=== PATIENT | male | born 1930 | race African-American/Black ===

== ENCOUNTER 2019-11-12 08:56 | Inpatient (IN) ==
[2019-11-12 11:36] LABS: Basophils % 0.2 % (0.0-0.8); Hematocrit 29.7 VOL% (42.0-52.0); Hemoglobin 9.6 GM/DL (14.0-18.0); Immature Granulocytes % 0.6 %; Immature Granulocytes Absolute 0.03 #; Lymphocytes # 0.6 10*3/uL (1.4-4.0); Lymphocytes % 11.3 % (21.2-54.2); Mean Corpuscular HGB Conc 32.3 GM/DL (32-36); Mean Corpuscular Volume 84.6 FL (87-102); Mean Platelet Volume 12.8 FL (9.6-12.0); Monocytes % 6.7 % (1.7-12.7); Neutrophils % 81.2 % (38.7-73.9); Platelet Count 120 T/CUMM (130-400); Red Blood Count 3.51 MC/CUMM (3.8-5.5); Red Cell Distribution Width 15.3 % (9.3-17.3); White Blood Count 4.9 T/CUMM (4-12)
[2019-11-12] MEDS ORDERED: ONDANSETRON 4 MG/2 ML VIAL IV PRN (11:39)
[2019-11-12 12:01] LABS: INR 1.1; PT Patient Result 11.8 SECS (9.8-11.9); Partial Thromboplastin Time 37.9 SECS (23.9-33.8)
[2019-11-12] MEDS ORDERED: ASPIRIN CHEW 81 MG TABLET PO ONE (12:02)
[2019-11-12 12:22] LABS: CKMB % 1.7 %
[2019-11-12 12:24] LABS: Troponin I 8.29 NG/ML (0.00-0.045)
[2019-11-12] MEDS ORDERED: SODIUM CHLORIDE 0.9% 1,000 ML IV SCH (12:30)
[2019-11-12 12:44] LABS: Albumin 3.2 G/DL (3.4-5.0); Bilirubin,Total 0.8 MG/DL (0.2-1.0); Calcium 8.4 MG/DL (8.5-10.1); Osmolality,Calculated 298.5 MOS/KG (273-304); Total Protein 7.8 G/DL (6.4-8.3)
[2019-11-12] MEDS ORDERED: ENOXAPARIN 80 MG/0.8 ML SYRINGE SUBCUT ONE (13:00)
[2019-11-12] MEDS ORDERED: ENOXAPARIN 80 MG/0.8 ML SYRINGE SUBCUT SCH (13:00)
[2019-11-12] MEDS: DEXAMETHASONE 4 MG/1 ML VIAL IV SCH (13:16)
[2019-11-12] MEDS: ZINC GLUCONATE 50 MG TABLET PO SCH (13:17)
[2019-11-12 13:37] LABS: Burr Cells Few; Hypochromasia 3+; Microcytosis 1+; Platelet Estimate Adequate; Polychromasia Slight; Schistocytes Few
[2019-11-12 13:38] LABS: Ovalocytes Few
[2019-11-12 13:50] LABS: Ferritin 3960.6 ng/ml (26-388)
[2019-11-12] MEDS: LACTULOSE 20 GM/30 ML UDCUP PO SCH (15:29)
[2019-11-12] MEDS ORDERED: SODIUM CHLORIDE 0.9% 1,000 ML IV PRN (15:30)
[2019-11-12] MEDS: SODIUM BICARB INJ 100 MEQ in DEXTROSE 5% NACL 0.22% 1,000 ML IV SCH (17:24)
[2019-11-12] MEDS ORDERED: PHENYLEPHRINE DRIP 40 MG/250 ML PREMIX IV PRN (17:30)
[2019-11-12] MEDS: ROSUVASTATIN 20 MG TABLET PO SCH (20:05)
[2019-11-12] MEDS ORDERED: ROSUVASTATIN 10 MG TABLET PO SCH (21:00)
[2019-11-12] MEDS ORDERED: METOPROLOL TARTRATE 25 MG TABLET PO SCH (21:00)
[2019-11-13 03:37] LABS: Hematocrit 33.2 VOL% (42.0-52.0); Hemoglobin 10.3 GM/DL (14.0-18.0); Immature Granulocytes Absolute 0.04 #; Lymphocytes # 0.3 10*3/uL (1.4-4.0); Lymphocytes % 8.1 % (21.2-54.2); Mean Corpuscular Volume 86.5 FL (87-102); Mean Platelet Volume 12.6 FL (9.6-12.0); Monocytes % 4.4 % (1.7-12.7); Neutrophils % 86.5 % (38.7-73.9); Platelet Count 164 T/CUMM (130-400); Red Blood Count 3.84 MC/CUMM (3.8-5.5); Red Cell Distribution Width 15.3 % (9.3-17.3); White Blood Count 4.1 T/CUMM (4-12)
[2019-11-13 03:59] LABS: Calcium 8.4 MG/DL (8.5-10.1); Osmolality,Calculated 308.1 MOS/KG (273-304)
[2019-11-13 04:02] LABS: Risk Ratio 3.44
[2019-11-13 05:40] LABS: Ferritin 3944.6 ng/ml (26-388)
[2019-11-13] MEDS: SODIUM BICARB INJ 100 MEQ in DEXTROSE 5% NACL 0.22% 1,000 ML IV SCH (07:24)
[2019-11-13] MEDS ORDERED: ASPIRIN EC 325 MG TABLET PO SCH (09:00)
[2019-11-13] MEDS: LACTULOSE 20 GM/30 ML UDCUP PO SCH (09:08)
[2019-11-13] MEDS: DEXAMETHASONE 4 MG/1 ML VIAL IV SCH (09:08)
[2019-11-13] MEDS: ASPIRIN EC 81 MG TABLET PO SCH (09:08)
[2019-11-13] MEDS: PANTOPRAZOLE 40 MG TABLET PO SCH (09:09)
[2019-11-13] MEDS: DEXTROSE 5% NACL 0.45% 1,000 ML IV SCH (11:58)
[2019-11-13] MEDS: ENOXAPARIN 40 MG/0.4 ML SYRINGE SUBCUT SCH (13:13)
[2019-11-13] MEDS: SODIUM BICARBONATE 650 MG TABLET PO SCH (21:34)
[2019-11-13] MEDS: ROSUVASTATIN 20 MG TABLET PO SCH (21:34)
[2019-11-13] MEDS: FERROUS SULFATE 325 MG TABLET PO SCH (21:34)
[2019-11-14] MEDS: DEXTROSE 5% NACL 0.45% 1,000 ML IV SCH (01:58)
[2019-11-14 03:42] LABS: Basophils % 0.1 % (0.0-0.8); Hematocrit 29.8 VOL% (42.0-52.0); Hemoglobin 9.5 GM/DL (14.0-18.0); Immature Granulocytes % 1.3 %; Lymphocytes # 0.3 10*3/uL (1.4-4.0); Lymphocytes % 4.1 % (21.2-54.2); Mean Corpuscular HGB Conc 31.9 GM/DL (32-36); Mean Corpuscular Volume 84.7 FL (87-102); Mean Platelet Volume 11.5 FL (9.6-12.0); Monocytes % 4.7 % (1.7-12.7); NRBC # 0.02 10*3/uL; Neutrophils % 89.8 % (38.7-73.9); Platelet Count 165 T/CUMM (130-400); Red Blood Count 3.52 MC/CUMM (3.8-5.5); Red Cell Distribution Width 15.1 % (9.3-17.3); White Blood Count 7.9 T/CUMM (4-12)
[2019-11-14 04:03] LABS: Calcium 8.3 MG/DL (8.5-10.1); Osmolality,Calculated 299.4 MOS/KG (273-304)
[2019-11-14 04:19] LABS: Ferritin 3014.1 ng/ml (26-388)
[2019-11-14 06:47] LABS: Lymphocytes 3 % (20-55); Platelet Estimate Normal; Segmented Neutrophils 93 % (50-85); Total Cells Counted 100
[2019-11-14] MEDS: PHENobarbital 30 MG TABLET PO SCH (08:18)
[2019-11-14] MEDS: SODIUM BICARBONATE 650 MG TABLET PO SCH ×2 (08:18→20:30)
[2019-11-14] MEDS: ASPIRIN EC 81 MG TABLET PO SCH (08:19)
[2019-11-14] MEDS: LACTULOSE 20 GM/30 ML UDCUP PO SCH (08:19)
[2019-11-14] MEDS: allopurinoL 100 MG TABLET PO SCH (08:19)
[2019-11-14] MEDS: ZINC GLUCONATE 50 MG TABLET PO SCH (08:19)
[2019-11-14] MEDS: FINASTERIDE 5 MG TABLET PO SCH (08:19)
[2019-11-14] MEDS: FERROUS SULFATE 325 MG TABLET PO SCH ×2 (08:19→20:30)
[2019-11-14] MEDS: PANTOPRAZOLE 40 MG TABLET PO SCH (08:19)
[2019-11-14] MEDS: DEXAMETHASONE 4 MG/1 ML VIAL IV SCH (08:20)
[2019-11-14] MEDS ORDERED: FUROSEMIDE 40 MG/4 ML VIAL IV ONE (09:07)
[2019-11-14] MEDS: ENOXAPARIN 40 MG/0.4 ML SYRINGE SUBCUT SCH (13:16)
[2019-11-14] MEDS: ROSUVASTATIN 20 MG TABLET PO SCH (20:30)
[2019-11-15 03:43] LABS: Basophils % 0.2 % (0.0-0.8); Eosinophils % 0.1 % (0.00-10.9); Hematocrit 33.3 VOL% (42.0-52.0); Hemoglobin 10.4 GM/DL (14.0-18.0); Immature Granulocytes Absolute 0.17 #; Lymphocytes # 0.4 10*3/uL (1.4-4.0); Lymphocytes % 4.2 % (21.2-54.2); Mean Corpuscular HGB Conc 31.2 GM/DL (32-36); Mean Platelet Volume 12.6 FL (9.6-12.0); Monocytes % 4.6 % (1.7-12.7); NRBC # 0.03 10*3/uL; Neutrophils % 88.9 % (38.7-73.9); Platelet Count 209 T/CUMM (130-400); Red Blood Count 3.87 MC/CUMM (3.8-5.5); Red Cell Distribution Width 15.2 % (9.3-17.3); White Blood Count 8.6 T/CUMM (4-12)
[2019-11-15 04:07] LABS: Calcium 8.7 MG/DL (8.5-10.1); Osmolality,Calculated 292.5 MOS/KG (273-304)
[2019-11-15 04:17] LABS: Anisocytosis 1+; Band Neutrophils 1 % (0-10); Lymphocytes 5 % (20-55); Platelet Estimate Normal; Segmented Neutrophils 91 % (50-85); Total Cells Counted 100
[2019-11-15 04:23] LABS: Ferritin 2969.7 ng/ml (26-388)
[2019-11-15] MEDS: LACTULOSE 20 GM/30 ML UDCUP PO SCH (08:07)
[2019-11-15] MEDS: SODIUM BICARBONATE 650 MG TABLET PO SCH ×2 (08:07→21:15)
[2019-11-15] MEDS: allopurinoL 100 MG TABLET PO SCH (08:07)
[2019-11-15] MEDS: PANTOPRAZOLE 40 MG TABLET PO SCH (08:07)
[2019-11-15] MEDS: FINASTERIDE 5 MG TABLET PO SCH (08:07)
[2019-11-15] MEDS: FERROUS SULFATE 325 MG TABLET PO SCH ×2 (08:07→21:15)
[2019-11-15] MEDS: ASPIRIN EC 81 MG TABLET PO SCH (08:07)
[2019-11-15] MEDS: PHENobarbital 30 MG TABLET PO SCH (08:08)
[2019-11-15] MEDS: DEXAMETHASONE 4 MG/1 ML VIAL IV SCH (08:09)
[2019-11-15] MEDS: PIPERACILLIN/TAZOBACTAM 3,375 MG in SODIUM CHLORIDE 0.9% 100 ML IV SCH ×2 (08:45→15:50)
[2019-11-15] MEDS ORDERED: ASPIRIN EC 81 MG TABLET PO SCH (09:30)
[2019-11-15] MEDS ORDERED: FUROSEMIDE 40 MG/4 ML VIAL IV ONE (11:04)
[2019-11-15] MEDS: ALFUZOSIN 10 MG TABLET PO SCH (11:50)
[2019-11-15] MEDS: METOPROLOL TARTRATE 25 MG TABLET PO SCH ×2 (11:50→21:15)
[2019-11-15] MEDS: amLODIPine 10 MG TABLET PO SCH (11:50)
[2019-11-15] MEDS: ENOXAPARIN 40 MG/0.4 ML SYRINGE SUBCUT SCH (12:12)
[2019-11-15] MEDS: ROSUVASTATIN 20 MG TABLET PO SCH (21:15)
[2019-11-16] MEDS: PIPERACILLIN/TAZOBACTAM 3,375 MG in SODIUM CHLORIDE 0.9% 100 ML IV SCH ×3 (00:30→16:50)
[2019-11-16 04:04] LABS: Basophils % 0.2 % (0.0-0.8); Eosinophils % 0.5 % (0.00-10.9); Hematocrit 31.4 VOL% (42.0-52.0); Immature Granulocytes % 3.6 %; Immature Granulocytes Absolute 0.29 #; Lymphocytes # 0.5 10*3/uL (1.4-4.0); Lymphocytes % 5.8 % (21.2-54.2); Mean Corpuscular HGB Conc 31.8 GM/DL (32-36); Mean Corpuscular Volume 84.6 FL (87-102); Mean Platelet Volume 12.5 FL (9.6-12.0); Monocytes % 4.3 % (1.7-12.7); NRBC # 0.02 10*3/uL; Neutrophils % 85.6 % (38.7-73.9); Platelet Count 215 T/CUMM (130-400); Red Blood Count 3.71 MC/CUMM (3.8-5.5); Red Cell Distribution Width 14.9 % (9.3-17.3); White Blood Count 8.1 T/CUMM (4-12)
[2019-11-16 04:16] LABS: Calcium 8.7 MG/DL (8.5-10.1); Osmolality,Calculated 292.7 MOS/KG (273-304)
[2019-11-16 04:32] LABS: Ferritin 2683.8 ng/ml (26-388)
[2019-11-16] MEDS: METOPROLOL TARTRATE 25 MG TABLET PO SCH ×2 (08:27→21:00)
[2019-11-16] MEDS: ALFUZOSIN 10 MG TABLET PO SCH (08:27)
[2019-11-16] MEDS: FINASTERIDE 5 MG TABLET PO SCH (08:27)
[2019-11-16] MEDS: SODIUM BICARBONATE 650 MG TABLET PO SCH ×2 (08:27→21:00)
[2019-11-16] MEDS: PANTOPRAZOLE 40 MG TABLET PO SCH (08:28)
[2019-11-16] MEDS: ZINC GLUCONATE 50 MG TABLET PO SCH (08:28)
[2019-11-16] MEDS: ASPIRIN EC 81 MG TABLET PO SCH (08:28)
[2019-11-16] MEDS: FERROUS SULFATE 325 MG TABLET PO SCH ×2 (08:28→21:00)
[2019-11-16] MEDS: amLODIPine 10 MG TABLET PO SCH (08:28)
[2019-11-16] MEDS: allopurinoL 100 MG TABLET PO SCH (08:28)
[2019-11-16] MEDS: DEXAMETHASONE 4 MG/1 ML VIAL IV SCH (08:29)
[2019-11-16] MEDS: PHENobarbital 30 MG TABLET PO SCH (08:29)
[2019-11-16] MEDS: LACTULOSE 20 GM/30 ML UDCUP PO SCH (08:29)
[2019-11-16] MEDS: ENOXAPARIN 40 MG/0.4 ML SYRINGE SUBCUT SCH (13:15)
[2019-11-16] MEDS: ROSUVASTATIN 20 MG TABLET PO SCH (21:00)
[2019-11-17 03:42] LABS: Basophils % 0.3 % (0.0-0.8); Eosinophils # 0.1 10*3/uL (0.0-0.87); Eosinophils % 1.6 % (0.00-10.9); Hemoglobin 9.9 GM/DL (14.0-18.0); Immature Granulocytes % 4.8 %; Immature Granulocytes Absolute 0.37 #; Lymphocytes # 0.5 10*3/uL (1.4-4.0); Mean Corpuscular HGB Conc 31.9 GM/DL (32-36); Mean Corpuscular Volume 84.7 FL (87-102); Mean Platelet Volume 11.8 FL (9.6-12.0); Monocytes % 3.8 % (1.7-12.7); Neutrophils % 83.5 % (38.7-73.9); Platelet Count 195 T/CUMM (130-400); Red Blood Count 3.66 MC/CUMM (3.8-5.5); Red Cell Distribution Width 15.3 % (9.3-17.3); White Blood Count 7.7 T/CUMM (4-12)
[2019-11-17 04:02] LABS: Calcium 8.5 MG/DL (8.5-10.1); Osmolality,Calculated 294.7 MOS/KG (273-304)
[2019-11-17] MEDS: DEXAMETHASONE 4 MG/1 ML VIAL IV SCH (08:54)
[2019-11-17] MEDS: PIPERACILLIN/TAZOBACTAM 3,375 MG in SODIUM CHLORIDE 0.9% 100 ML IV SCH ×4 (08:54→23:32)
[2019-11-17] MEDS: LACTULOSE 20 GM/30 ML UDCUP PO SCH (08:55)
[2019-11-17] MEDS: ASPIRIN EC 81 MG TABLET PO SCH (08:55)
[2019-11-17] MEDS: FERROUS SULFATE 325 MG TABLET PO SCH ×2 (08:55→20:40)
[2019-11-17] MEDS: amLODIPine 10 MG TABLET PO SCH (08:55)
[2019-11-17] MEDS: PANTOPRAZOLE 40 MG TABLET PO SCH (08:55)
[2019-11-17] MEDS: SODIUM BICARBONATE 650 MG TABLET PO SCH ×2 (08:55→20:40)
[2019-11-17] MEDS: ALFUZOSIN 10 MG TABLET PO SCH (08:55)
[2019-11-17] MEDS: FINASTERIDE 5 MG TABLET PO SCH (08:55)
[2019-11-17] MEDS: METOPROLOL TARTRATE 25 MG TABLET PO SCH ×2 (08:55→20:40)
[2019-11-17] MEDS: allopurinoL 100 MG TABLET PO SCH (08:55)
[2019-11-17] MEDS: PHENobarbital 30 MG TABLET PO SCH (08:58)
[2019-11-17] MEDS: ENOXAPARIN 40 MG/0.4 ML SYRINGE SUBCUT SCH (16:15)
[2019-11-17] MEDS: ROSUVASTATIN 20 MG TABLET PO SCH (20:40)
[2019-11-18 04:27] LABS: Basophils % 0.4 % (0.0-0.8); Eosinophils # 0.3 10*3/uL (0.0-0.87); Eosinophils % 2.8 % (0.00-10.9); Hematocrit 32.9 VOL% (42.0-52.0); Hemoglobin 10.2 GM/DL (14.0-18.0); Immature Granulocytes % 6.5 %; Immature Granulocytes Absolute 0.61 #; Lymphocytes # 0.4 10*3/uL (1.4-4.0); Lymphocytes % 4.4 % (21.2-54.2); Mean Corpuscular Volume 86.8 FL (87-102); Mean Platelet Volume 11.5 FL (9.6-12.0); Monocytes % 3.7 % (1.7-12.7); Neutrophils % 82.2 % (38.7-73.9); Platelet Count 192 T/CUMM (130-400); Red Blood Count 3.79 MC/CUMM (3.8-5.5); Red Cell Distribution Width 15.5 % (9.3-17.3); White Blood Count 9.4 T/CUMM (4-12)
[2019-11-18 04:49] LABS: Eosinophils 3 % (0-10); Hypochromasia 1+; Lymphocytes 6 % (20-55); Nucleated Red Blood Cells 1 (0-5); Ovalocytes Slight; Platelet Estimate Adequate; Segmented Neutrophils 88 % (50-85); Total Cells Counted 100
[2019-11-18 04:51] LABS: Calcium 8.5 MG/DL (8.5-10.1); Osmolality,Calculated 297.5 MOS/KG (273-304)
[2019-11-18] MEDS: PIPERACILLIN/TAZOBACTAM 3,375 MG in SODIUM CHLORIDE 0.9% 100 ML IV SCH ×2 (08:01→16:28)
[2019-11-18] MEDS: PHENobarbital 30 MG TABLET PO SCH (08:01)
[2019-11-18] MEDS: METOPROLOL TARTRATE 25 MG TABLET PO SCH ×2 (08:02→20:51)
[2019-11-18] MEDS: SODIUM BICARBONATE 650 MG TABLET PO SCH ×2 (08:02→20:51)
[2019-11-18] MEDS: ALFUZOSIN 10 MG TABLET PO SCH (08:02)
[2019-11-18] MEDS: FERROUS SULFATE 325 MG TABLET PO SCH ×2 (08:02→20:51)
[2019-11-18] MEDS: ASPIRIN EC 81 MG TABLET PO SCH (08:02)
[2019-11-18] MEDS: PANTOPRAZOLE 40 MG TABLET PO SCH (08:02)
[2019-11-18] MEDS: amLODIPine 10 MG TABLET PO SCH (08:02)
[2019-11-18] MEDS: allopurinoL 100 MG TABLET PO SCH (08:02)
[2019-11-18] MEDS: FINASTERIDE 5 MG TABLET PO SCH (08:03)
[2019-11-18] MEDS: LACTULOSE 20 GM/30 ML UDCUP PO SCH (08:03)
[2019-11-18] MEDS: DEXAMETHASONE 4 MG/1 ML VIAL IV SCH (08:03)
[2019-11-18] MEDS: ENOXAPARIN 40 MG/0.4 ML SYRINGE SUBCUT SCH (13:41)
[2019-11-18] MEDS: ACETAMINOPHEN 325 MG TABLET PO PRN (20:51)
[2019-11-18] MEDS: ROSUVASTATIN 20 MG TABLET PO SCH (20:51)
[2019-11-19] MEDS: PIPERACILLIN/TAZOBACTAM 3,375 MG in SODIUM CHLORIDE 0.9% 100 ML IV SCH ×2 (00:20→08:44)
[2019-11-19 06:25] LABS: Basophils % 0.4 % (0.0-0.8); Eosinophils # 0.3 10*3/uL (0.0-0.87); Eosinophils % 3.5 % (0.00-10.9); Hematocrit 32.2 VOL% (42.0-52.0); Hemoglobin 9.8 GM/DL (14.0-18.0); Immature Granulocytes % 6.3 %; Immature Granulocytes Absolute 0.58 #; Lymphocytes # 0.5 10*3/uL (1.4-4.0); Lymphocytes % 5.1 % (21.2-54.2); Mean Corpuscular HGB Conc 30.4 GM/DL (32-36); Mean Corpuscular Volume 88.2 FL (87-102); Mean Platelet Volume 12.4 FL (9.6-12.0); Monocytes % 3.4 % (1.7-12.7); Neutrophils % 81.3 % (38.7-73.9); Platelet Count 198 T/CUMM (130-400); Red Blood Count 3.65 MC/CUMM (3.8-5.5); Red Cell Distribution Width 15.8 % (9.3-17.3); White Blood Count 9.2 T/CUMM (4-12)
[2019-11-19 06:48] LABS: Calcium 8.8 MG/DL (8.5-10.1)
[2019-11-19 07:03] LABS: Eosinophils 7 % (0-10); Lymphocytes 4 % (20-55); Segmented Neutrophils 87 % (50-85); Total Cells Counted 100
[2019-11-19 07:04] LABS: Hypochromasia 1+; Microcytosis 1+
[2019-11-19 07:05] LABS: Ovalocytes Slight; Platelet Estimate Adequate
[2019-11-19] MEDS: PHENobarbital 30 MG TABLET PO SCH (08:44)
[2019-11-19] MEDS: FERROUS SULFATE 325 MG TABLET PO SCH ×2 (08:44→20:06)
[2019-11-19] MEDS: FINASTERIDE 5 MG TABLET PO SCH (08:44)
[2019-11-19] MEDS: LACTULOSE 20 GM/30 ML UDCUP PO SCH (08:44)
[2019-11-19] MEDS: DEXAMETHASONE 4 MG/1 ML VIAL IV SCH (08:44)
[2019-11-19] MEDS: METOPROLOL TARTRATE 25 MG TABLET PO SCH ×2 (08:45→20:06)
[2019-11-19] MEDS: SODIUM BICARBONATE 650 MG TABLET PO SCH ×2 (08:45→20:06)
[2019-11-19] MEDS: PANTOPRAZOLE 40 MG TABLET PO SCH (08:45)
[2019-11-19] MEDS: ASPIRIN EC 81 MG TABLET PO SCH (08:45)
[2019-11-19] MEDS: amLODIPine 10 MG TABLET PO SCH (08:45)
[2019-11-19] MEDS: ALFUZOSIN 10 MG TABLET PO SCH (08:46)
[2019-11-19] MEDS: allopurinoL 100 MG TABLET PO SCH (08:46)
[2019-11-19] MEDS: ENOXAPARIN 40 MG/0.4 ML SYRINGE SUBCUT SCH (12:00)
[2019-11-19] MEDS: ROSUVASTATIN 20 MG TABLET PO SCH (20:06)
[2019-11-19] MEDS: ACETAMINOPHEN 325 MG TABLET PO PRN (20:06)
[2019-11-20 07:09] LABS: Basophils % 0.4 % (0.0-0.8); Eosinophils # 0.4 10*3/uL (0.0-0.87); Eosinophils % 3.8 % (0.00-10.9); Hematocrit 32.9 VOL% (42.0-52.0); Immature Granulocytes % 4.8 %; Immature Granulocytes Absolute 0.47 #; Lymphocytes # 0.4 10*3/uL (1.4-4.0); Lymphocytes % 4.3 % (21.2-54.2); Mean Corpuscular HGB Conc 30.4 GM/DL (32-36); Mean Platelet Volume 12.4 FL (9.6-12.0); Monocytes % 2.9 % (1.7-12.7); Neutrophils % 83.8 % (38.7-73.9); Platelet Count 182 T/CUMM (130-400); Red Blood Count 3.74 MC/CUMM (3.8-5.5); Red Cell Distribution Width 15.9 % (9.3-17.3); White Blood Count 9.8 T/CUMM (4-12)
[2019-11-20 07:32] LABS: Calcium 9.2 MG/DL (8.5-10.1); Osmolality,Calculated 297.3 MOS/KG (273-304)
[2019-11-20 07:47] LABS: Band Neutrophils 1 % (0-10); Hypochromasia 1+; Lymphocytes 3 % (20-55); Platelet Estimate Adequate; Segmented Neutrophils 93 % (50-85); Total Cells Counted 100
[2019-11-20 07:48] LABS: Microcytosis 1+
[2019-11-20] MEDS: FINASTERIDE 5 MG TABLET PO SCH (08:46)
[2019-11-20] MEDS: FERROUS SULFATE 325 MG TABLET PO SCH ×2 (08:47→20:28)
[2019-11-20] MEDS: SODIUM BICARBONATE 650 MG TABLET PO SCH ×2 (08:47→20:25)
[2019-11-20] MEDS: allopurinoL 100 MG TABLET PO SCH (08:47)
[2019-11-20] MEDS: amLODIPine 10 MG TABLET PO SCH (08:47)
[2019-11-20] MEDS: PHENobarbital 30 MG TABLET PO SCH (08:47)
[2019-11-20] MEDS: HEPARIN 5,000 UNIT/1 ML VIAL SUBCUT SCH ×2 (08:48→16:29)
[2019-11-20] MEDS: DEXAMETHASONE 4 MG/1 ML VIAL IV SCH (08:49)
[2019-11-20] MEDS: ASPIRIN EC 81 MG TABLET PO SCH (08:49)
[2019-11-20] MEDS: LACTULOSE 20 GM/30 ML UDCUP PO SCH (08:49)
[2019-11-20] MEDS: METOPROLOL TARTRATE 25 MG TABLET PO SCH ×2 (08:49→20:25)
[2019-11-20] MEDS: ALFUZOSIN 10 MG TABLET PO SCH (08:54)
[2019-11-20] MEDS ORDERED: FUROSEMIDE 40 MG/4 ML VIAL IV ONE (12:00)
[2019-11-20] MEDS: ROSUVASTATIN 20 MG TABLET PO SCH (20:28)
[2019-11-21] MEDS: HEPARIN 5,000 UNIT/1 ML VIAL SUBCUT SCH ×3 (01:45→16:28)
[2019-11-21 06:28] LABS: Basophils % 0.2 % (0.0-0.8); Eosinophils # 0.3 10*3/uL (0.0-0.87); Eosinophils % 3.8 % (0.00-10.9); Hematocrit 32.6 VOL% (42.0-52.0); Hemoglobin 10.2 GM/DL (14.0-18.0); Immature Granulocytes % 2.4 %; Immature Granulocytes Absolute 0.21 #; Lymphocytes # 0.4 10*3/uL (1.4-4.0); Lymphocytes % 4.7 % (21.2-54.2); Mean Corpuscular HGB Conc 31.3 GM/DL (32-36); Mean Platelet Volume 12.6 FL (9.6-12.0); Monocytes % 3.5 % (1.7-12.7); Neutrophils % 85.4 % (38.7-73.9); Platelet Count 177 T/CUMM (130-400); Red Blood Count 3.79 MC/CUMM (3.8-5.5); Red Cell Distribution Width 15.9 % (9.3-17.3); White Blood Count 8.9 T/CUMM (4-12)
[2019-11-21 06:42] LABS: Calcium 9.5 MG/DL (8.5-10.1)
[2019-11-21 07:20] LABS: Eosinophils 4 % (0-10); Hypochromasia 1+; Lymphocytes 4 % (20-55); Microcytosis 1+; Ovalocytes Slight; Segmented Neutrophils 92 % (50-85); Total Cells Counted 100
[2019-11-21 07:21] LABS: Acanthocytes Few; Platelet Estimate Adequate; Target Cells Slight
[2019-11-21] MEDS: DEXAMETHASONE 4 MG/1 ML VIAL IV SCH (08:35)
[2019-11-21] MEDS: FERROUS SULFATE 325 MG TABLET PO SCH ×2 (08:35→21:16)
[2019-11-21] MEDS: ALFUZOSIN 10 MG TABLET PO SCH (08:35)
[2019-11-21] MEDS: amLODIPine 10 MG TABLET PO SCH (08:36)
[2019-11-21] MEDS: ASPIRIN EC 81 MG TABLET PO SCH (08:36)
[2019-11-21] MEDS: SODIUM BICARBONATE 650 MG TABLET PO SCH ×2 (08:36→21:16)
[2019-11-21] MEDS: FINASTERIDE 5 MG TABLET PO SCH (08:36)
[2019-11-21] MEDS: PHENobarbital 30 MG TABLET PO SCH (08:36)
[2019-11-21] MEDS: allopurinoL 100 MG TABLET PO SCH (08:36)
[2019-11-21] MEDS: METOPROLOL TARTRATE 25 MG TABLET PO SCH ×2 (08:36→21:17)
[2019-11-21] MEDS: LACTULOSE 20 GM/30 ML UDCUP PO SCH (08:37)
[2019-11-21] MEDS: ROSUVASTATIN 20 MG TABLET PO SCH (21:16)
[2019-11-22] MEDS: HEPARIN 5,000 UNIT/1 ML VIAL SUBCUT SCH ×3 (01:04→16:52)
[2019-11-22 06:44] LABS: Basophils % 0.1 % (0.0-0.8); Eosinophils # 0.4 10*3/uL (0.0-0.87); Eosinophils % 4.2 % (0.00-10.9); Hematocrit 32.1 VOL% (42.0-52.0); Immature Granulocytes % 1.4 %; Immature Granulocytes Absolute 0.12 #; Lymphocytes # 0.4 10*3/uL (1.4-4.0); Lymphocytes % 4.4 % (21.2-54.2); Mean Corpuscular HGB Conc 31.2 GM/DL (32-36); Mean Corpuscular Volume 86.3 FL (87-102); Mean Platelet Volume 11.6 FL (9.6-12.0); Monocytes % 3.4 % (1.7-12.7); Neutrophils % 86.5 % (38.7-73.9); Platelet Count 164 T/CUMM (130-400); Red Blood Count 3.72 MC/CUMM (3.8-5.5); Red Cell Distribution Width 15.8 % (9.3-17.3); White Blood Count 8.6 T/CUMM (4-12)
[2019-11-22 07:05] LABS: Calcium 9.6 MG/DL (8.5-10.1); Osmolality,Calculated 301.3 MOS/KG (273-304)
[2019-11-22 07:24] LABS: Band Neutrophils 1 % (0-10); Eosinophils 4 % (0-10); Hypochromasia 1+; Lymphocytes 3 % (20-55); Microcytosis 1+; Myelocytes 1 %; Segmented Neutrophils 89 % (50-85); Target Cells Slight; Total Cells Counted 100
[2019-11-22 07:25] LABS: Ovalocytes Slight; Platelet Estimate Adequate
[2019-11-22] MEDS: FERROUS SULFATE 325 MG TABLET PO SCH ×2 (08:18→20:59)
[2019-11-22] MEDS: LACTULOSE 20 GM/30 ML UDCUP PO SCH (08:18)
[2019-11-22] MEDS: ASPIRIN EC 81 MG TABLET PO SCH (08:18)
[2019-11-22] MEDS: amLODIPine 10 MG TABLET PO SCH (08:19)
[2019-11-22] MEDS: allopurinoL 100 MG TABLET PO SCH (08:19)
[2019-11-22] MEDS: ALFUZOSIN 10 MG TABLET PO SCH (08:19)
[2019-11-22] MEDS: FINASTERIDE 5 MG TABLET PO SCH (08:19)
[2019-11-22] MEDS: METOPROLOL TARTRATE 25 MG TABLET PO SCH ×2 (08:19→20:59)
[2019-11-22] MEDS: DEXAMETHASONE 4 MG/1 ML VIAL IV SCH (08:19)
[2019-11-22] MEDS: PHENobarbital 30 MG TABLET PO SCH (08:20)
[2019-11-22] MEDS: SODIUM BICARBONATE 650 MG TABLET PO SCH ×2 (08:20→20:59)
[2019-11-22] MEDS: ROSUVASTATIN 20 MG TABLET PO SCH (20:59)
[2019-11-23] MEDS: HEPARIN 5,000 UNIT/1 ML VIAL SUBCUT SCH ×3 (01:44→17:39)
[2019-11-23 06:55] LABS: Basophils % 0.1 % (0.0-0.8); Eosinophils # 0.3 10*3/uL (0.0-0.87); Eosinophils % 3.5 % (0.00-10.9); Hematocrit 33.2 VOL% (42.0-52.0); Hemoglobin 10.1 GM/DL (14.0-18.0); Immature Granulocytes % 1.3 %; Immature Granulocytes Absolute 0.11 #; Lymphocytes # 0.4 10*3/uL (1.4-4.0); Mean Corpuscular HGB Conc 30.4 GM/DL (32-36); Mean Corpuscular Volume 87.6 FL (87-102); Mean Platelet Volume 12.9 FL (9.6-12.0); Neutrophils % 86.1 % (38.7-73.9); Platelet Count 156 T/CUMM (130-400); Red Blood Count 3.79 MC/CUMM (3.8-5.5); White Blood Count 8.5 T/CUMM (4-12)
[2019-11-23 07:18] LABS: Anisocytosis 1+; Platelet Estimate Normal
[2019-11-23 07:32] LABS: Calcium 9.5 MG/DL (8.5-10.1); Osmolality,Calculated 314.7 MOS/KG (273-304)
[2019-11-23] MEDS: SODIUM BICARBONATE 650 MG TABLET PO SCH ×2 (09:20→21:50)
[2019-11-23] MEDS: ALFUZOSIN 10 MG TABLET PO SCH (09:20)
[2019-11-23] MEDS: ASPIRIN EC 81 MG TABLET PO SCH (09:20)
[2019-11-23] MEDS: PHENobarbital 30 MG TABLET PO SCH (09:20)
[2019-11-23] MEDS: FINASTERIDE 5 MG TABLET PO SCH (09:20)
[2019-11-23] MEDS: allopurinoL 100 MG TABLET PO SCH (09:20)
[2019-11-23] MEDS: amLODIPine 10 MG TABLET PO SCH (09:21)
[2019-11-23] MEDS: METOPROLOL TARTRATE 25 MG TABLET PO SCH ×2 (09:21→21:50)
[2019-11-23] MEDS: DEXAMETHASONE 4 MG/1 ML VIAL IV SCH (09:22)
[2019-11-23] MEDS: FERROUS SULFATE 325 MG TABLET PO SCH ×2 (09:22→21:50)
[2019-11-23] MEDS: LACTULOSE 20 GM/30 ML UDCUP PO SCH (09:22)
[2019-11-23] MEDS: ACETAMINOPHEN 325 MG TABLET PO PRN (21:50)
[2019-11-23] MEDS: ROSUVASTATIN 20 MG TABLET PO SCH (21:50)
[2019-11-24] MEDS: HEPARIN 5,000 UNIT/1 ML VIAL SUBCUT SCH ×3 (03:00→17:19)
[2019-11-24 06:49] LABS: Basophils % 0.3 % (0.0-0.8); Eosinophils # 0.5 10*3/uL (0.0-0.87); Eosinophils % 4.1 % (0.00-10.9); Hemoglobin 10.7 GM/DL (14.0-18.0); Immature Granulocytes % 0.7 %; Immature Granulocytes Absolute 0.08 #; Lymphocytes # 0.5 10*3/uL (1.4-4.0); Mean Corpuscular HGB Conc 31.5 GM/DL (32-36); Mean Corpuscular Volume 87.4 FL (87-102); Mean Platelet Volume 12.2 FL (9.6-12.0); Monocytes % 2.9 % (1.7-12.7); Platelet Count 154 T/CUMM (130-400); Red Blood Count 3.89 MC/CUMM (3.8-5.5); Red Cell Distribution Width 15.9 % (9.3-17.3); White Blood Count 11.8 T/CUMM (4-12)
[2019-11-24 06:56] LABS: Calcium 9.7 MG/DL (8.5-10.1); Osmolality,Calculated 326.1 MOS/KG (273-304)
[2019-11-24 07:44] LABS: Band Neutrophils 4 % (0-10); Eosinophils 3 % (0-10); Lymphocytes 2 % (20-55); Segmented Neutrophils 88 % (50-85); Total Cells Counted 100
[2019-11-24 07:45] LABS: Anisocytosis 1+; Macrocytosis Slight; Platelet Estimate Normal; Poikilocytosis Slight
[2019-11-24] MEDS: PHENobarbital 30 MG TABLET PO SCH (08:50)
[2019-11-24] MEDS: allopurinoL 100 MG TABLET PO SCH (08:51)
[2019-11-24] MEDS: METOPROLOL TARTRATE 25 MG TABLET PO SCH ×2 (08:51→23:12)
[2019-11-24] MEDS: SODIUM BICARBONATE 650 MG TABLET PO SCH (08:51)
[2019-11-24] MEDS: amLODIPine 10 MG TABLET PO SCH (08:51)
[2019-11-24] MEDS: FINASTERIDE 5 MG TABLET PO SCH (08:51)
[2019-11-24] MEDS: ASPIRIN EC 81 MG TABLET PO SCH (08:51)
[2019-11-24] MEDS: FERROUS SULFATE 325 MG TABLET PO SCH ×2 (08:51→23:12)
[2019-11-24] MEDS: LACTULOSE 20 GM/30 ML UDCUP PO SCH (08:52)
[2019-11-24] MEDS: DEXAMETHASONE 4 MG/1 ML VIAL IV SCH (09:01)
[2019-11-24] MEDS: ALFUZOSIN 10 MG TABLET PO SCH (09:02)
[2019-11-24] MEDS: DEXTROSE 5% 1,000 ML IV SCH ×2 (14:20→22:20)
[2019-11-24 17:01] LABS: ABG Base Excess 1.4 MMOL/L (-2.5-2.5); ABG HCO3 25.6 MMOL/L (20-26); ABG Oxygen Saturation 93.9 % (95-100); ABG TCO2 25.2 MMOL/L (23-27); Allen Test Positive; Pt O2 Delivery Device Other
[2019-11-24] MEDS: ROSUVASTATIN 20 MG TABLET PO SCH (23:12)
[2019-11-25] MEDS: HEPARIN 5,000 UNIT/1 ML VIAL SUBCUT SCH ×2 (01:52→09:15)
[2019-11-25 06:36] LABS: Basophils % 0.2 % (0.0-0.8); Eosinophils # 0.2 10*3/uL (0.0-0.87); Eosinophils % 2.5 % (0.00-10.9); Hematocrit 34.1 VOL% (42.0-52.0); Hemoglobin 10.2 GM/DL (14.0-18.0); Immature Granulocytes % 0.7 %; Immature Granulocytes Absolute 0.07 #; Lymphocytes # 0.4 10*3/uL (1.4-4.0); Lymphocytes % 4.6 % (21.2-54.2); Mean Corpuscular HGB Conc 29.9 GM/DL (32-36); Mean Corpuscular Volume 89.5 FL (87-102); Mean Platelet Volume 11.8 FL (9.6-12.0); Monocytes % 2.4 % (1.7-12.7); Neutrophils % 89.6 % (38.7-73.9); Platelet Count 129 T/CUMM (130-400); Red Blood Count 3.81 MC/CUMM (3.8-5.5); Red Cell Distribution Width 16.1 % (9.3-17.3); White Blood Count 9.7 T/CUMM (4-12)
[2019-11-25] MEDS: DEXTROSE 5% 1,000 ML IV SCH (06:37)
[2019-11-25 06:56] LABS: Calcium 9.4 MG/DL (8.5-10.1); Osmolality,Calculated 322.6 MOS/KG (273-304)
[2019-11-25 07:00] LABS: Eosinophils 6 % (0-10); Hypochromasia 1+; Lymphocytes 1 % (20-55); Segmented Neutrophils 88 % (50-85); Total Cells Counted 100
[2019-11-25 07:02] LABS: Microcytosis Slight
[2019-11-25] MEDS: LACTULOSE 20 GM/30 ML UDCUP PO SCH (09:23)
[2019-11-25] MEDS: ASPIRIN EC 81 MG TABLET PO SCH (09:23)
[2019-11-25] MEDS: METOPROLOL TARTRATE 25 MG TABLET PO SCH (09:24)
[2019-11-25] MEDS: FERROUS SULFATE 325 MG TABLET PO SCH (09:24)
[2019-11-25] MEDS: ALFUZOSIN 10 MG TABLET PO SCH (09:24)
[2019-11-25] MEDS: amLODIPine 10 MG TABLET PO SCH (09:24)
[2019-11-25] MEDS: PHENobarbital 30 MG TABLET PO SCH (09:24)
[2019-11-25] MEDS: FINASTERIDE 5 MG TABLET PO SCH (09:24)
[2019-11-25] MEDS: allopurinoL 100 MG TABLET PO SCH (09:25)
[2019-11-25] MEDS ORDERED: LORazepam 2 MG/1 ML VIAL IV PRN (11:22)
[2019-11-25] MEDS ORDERED: MORPHINE 4 MG/1 ML VIAL IV PRN (11:22)
[2019-11-25 11:47] VITALS: BP 115/70
== END 2019-11-25 18:30 | disposition expired | DRG 177 ==
LOC: N.CC 10:42 → SUATTDRO 10:42 → N.CC 10:47 → N.2E 11-18 10:22
PROVIDERS: ADMIT Internal Medicine; ATTEND Internal Medicine